=== PATIENT | male | born 1975 | race Caucasian/White ===

== ENCOUNTER 2020-11-14 09:26 | Emergency (ER) | payer OTHER ==
[~2020-11-14 09:26] MED LIST: CYCLOBENZAPRINE10 MG PO; IBUPROFEN800 MG PO; LIPITOR TAB 1010 MG PO; LISINOPRIL-HCT1 EAC1 PO; MINOCYCLINE HC100 MG PO; PREDNISONE 10 M10 MG PO; PROTONIX40 MG PO; TOPAMAX50 MG PO; TORADOL 10 MG T10 MG PO; TRULICITY1.5 MG/0.5 SQ
[2020-11-14 10:14] LABS: HEMOGLOBIN 14.4 gm/dl (14.0-17.5); RED BLOOD COUNT 4.59 M/UL (4.20-5.50); WHITE BLOOD COUNT 6.8 K/UL (4.5-11.0)
[2020-11-14 10:29] LABS: BUN/CREATININE RATIO 13 (0-10)
[2020-11-14] MEDS ORDERED: ZOFRAN ODT 4 MG4 MG PO (13:28)
[2020-11-14] MEDS ORDERED: BENTYL 10MG CAP10 MG PO (13:34)
== END 2020-11-14 13:39 | disposition home or self-care (01) ==
LOC: ER1 09:26
DX: R10.31 Right lower quadrant pain (principal); K21.9 Gastro-esophageal reflux disease without esophagitis; E78.5 Hyperlipidemia, unspecified; I10 Essential (primary) hypertension; E11.40 Type 2 diabetes mellitus with diabetic neuropathy, unspecified; Z79.899 Other long term (current) drug therapy; Z90.49 Acquired absence of other specified parts of digestive tract
CPT/HCPCS: 80053; 81001; 83605; 83690; 85025; 96374; 96375; 99284; J1885; J2405; Q9967